=== PATIENT | female | born 1990 | race Caucasian/White ===

== ENCOUNTER 2020-12-22 06:01 | Observation (INO) ==
--- NOTE | 2020-12-16 08:53 | Anesthesiology Consultation ---
Date of Service December 16, 2020 Assessment & Plan (1) Encounter for pre-operative examination: Chart Review Chart Review: Acceptable Risk for Surgery (pending preop Covid testing ) and Patient NOT seen in Pre Admission Testing - Check test AM DOS Per nursing assessment 12/08/2020, patient resides in [facility]. Travels to [facility] for medical appts. Wears PPE. No known Covid positive contacts or Covid related symptoms. No known Covid infection in the past 90 days. Covid test 12/15/20= results pending. History Surgery Operation Date: 12/22/20 07:30 Proposed Procedures p Bilateral Breast Reduction - Huong Paulino MD Height/Weight Height: 5 ft Weight: 75.75 kg Allergies Allergy/AdvReac Type Severity Reaction Status Date / Time No Known Drug Allergies Allergy Verified 12/08/20 15:35 Medications Home Medications Medication Instructions Recorded Confirmed Last Taken cetirizine 10 mg capsule 10 mg PO QAM 08/22/20 12/08/20 Unknown dextroamphetamine-amphetamine 5 mg 20 mg PO UD 08/22/20 12/08/20 Unknown tablet albuterol sulfate 90 mcg/actuation 1 inh INHALATION QID PRN 12/05/20 12/08/20 Unknown aerosol inhaler oxycodone-acetaminophen 5 mg-325 1 tab PO Q4H PRN #18 tab 12/05/20 12/05/20 Unknown mg tablet fluticasone propion-salmeterol 1 inh INHALATION QAM 12/08/20 12/08/20 Unknown [Advair Diskus] Past Medical History Medical History ADHD Asthma uses PRN INH 1xwk on avg Chronic upper back pain History of anxiety History of depression History of kidney stones Past Family History Family History Other Cancer No family history of adverse response to anesthesia Past Surgical History Surgical History Hx of wisdom tooth extraction Social History Smoking Status: Never smoker Do You Dip or Chew Tobacco: No Hx Alcohol Use: Yes Alcohol type: wine and hard liquor alcohol intake frequency: a few times a week Hx Substance Use: No substance use type: marijuana Last Used Substance Other:: 1 week ago Testing Laboratory Results Laboratory Tests 12/15/20 12/15/20 12/15/20 16:37 16:37 16:37 WBC 7.74 Hgb 14.4 Hct 41.8 Plt Count 326 PT 9.7 INR 1.0 APTT 27.7 Sodium 138 Potassium 3.4 L Chloride 107 Carbon Dioxide 26 BUN 12 Creatinine 0.85 Glucose 90
[~2020-12-22 06:01] MED LIST: LR 15ML/HR IV SCH; ceFAZolin 2000MG 2,000 MG/15 ML SYR IV SCH
--- NOTE | 2020-12-22 07:02 | History & Physical Bridge Note ---
Date of Service December 22, 2020 History & Physical Bridge Note I have examined the patient, reviewed the History & Physical and in the interval since the performance of the History & Physical I have noted the following changes of clinical significance: no changes noted
[2020-12-22] MEDS ORDERED: LIDOCAINE/EPINEPHRINE 1% 20 ML VIAL ONE (07:03)
[2020-12-22] MEDS ORDERED: LIDOCAINE HCL 1% 20 ML VIAL ONE (07:03)
[2020-12-22] MEDS ORDERED: EPINEPHrine INJ 1 MG/ML AMP ONE (07:03)
[2020-12-22] MEDS ORDERED: BUPIVACAINE 0.5 % 5 MG/1 ML MPF 30ML VIAL ONE (07:21)
[2020-12-22] MEDS ORDERED: BUPIVACAINE 0.5 % 5 MG/1 ML PF 10ML VIAL ONE (07:21)
[2020-12-22] MEDS ORDERED: BUPIVACAINE LIPOSOME 1.3% 266 MG/20 ML VIAL ONE (07:23)
[2020-12-22] MEDS ORDERED: MIDAZOLAM HCL 1 MG/ML 2ML VIAL ONE (07:24)
[2020-12-22] MEDS ORDERED: LARYING-O-JET KIT (LTA) ONE (07:24)
[2020-12-22] MEDS ORDERED: fentaNYL citrate 100 MCG/2 ML VIAL ONE ×3 (07:24→12:04)
[2020-12-22] MEDS ORDERED: GLYCOPYRROLATE 0.2 MG/ML VIAL ONE (07:24)
[2020-12-22] MEDS ORDERED: LIDOCAINE HCL 2% 2 ML VIAL/AMP(20MG/ML) INFIL ONE (07:24)
[2020-12-22] MEDS ORDERED: DEXAMETHASONE SOD INJ 4 MG/ML VIAL ONE (07:24)
[2020-12-22] MEDS ORDERED: ROCURONIUM BROMIDE 10 MG/ML 5 ML VIAL IV ONE ×2 (07:24→08:39)
[2020-12-22] MEDS ORDERED: ONDANSETRON INJ 2 MG/ML 2 ML VIAL ONE ×2 (07:24→08:51)
[2020-12-22] MEDS ORDERED: ePHEDrine sulfate 50 MG/ML SYR ONE (07:24)
[2020-12-22] MEDS ORDERED: NEOSTIGMINE METHYLSULFATE 5 MG/5 ML SYR ONE (07:24)
[2020-12-22] MEDS ORDERED: PHENYLEPHRINE 100MCG/ML 5ML SYR ONE (07:24)
[2020-12-22] MEDS ORDERED: PROPOFOL IV EMULSION 10 MG/ML 20 ML VIAL IV ONE (07:24)
[2020-12-22] MEDS ORDERED: SCOPOLAMINE 1 MG TDSY TD ONE ×2 (07:29→08:47)
[2020-12-22] MEDS ORDERED: PROMETHAZINE HCL 12.5 MG in SODIUM CHLORIDE 0.9% 50 ML IV PRN ×3 (08:47→17:50)
[2020-12-22] MEDS ORDERED: HYDROmorphone INJ 1 MG/ML SYRINGE IV PRN (08:47)
[2020-12-22] MEDS ORDERED: ONDANSETRON INJ 2 MG/ML 2 ML VIAL IV PRN ×3 (08:47→17:50)
[2020-12-22] MEDS ORDERED: fentaNYL citrate 100 MCG/2 ML VIAL IV PRN (08:47)
[2020-12-22] MEDS ORDERED: ePHEDrine sulfate 50 MG/ML AMP IV PRN (08:47)
[2020-12-22] MEDS ORDERED: ATROPINE SULFATE 0.1 MG/ML 10ML SYR IV PRN (08:47)
--- NOTE | 2020-12-22 12:07 | Post Operative Brief Note ---
PG Immediate Post Op with CF Date of Surgery December 22, 2020 Pre & Post Diagnosis Operation Date: 12/22/20 07:30 Pre-Op Diagnosis: Symptomatic Macromastia Post-Op Diagnosis: Symptomatic Macromastia I identified the patient and participated in the time-out.: Yes Procedure Operation Date: 12/22/20 07:30 Actual Procedures p Bilateral Breast Reduction(Bilateral) - Huong Paulino MD Surgeon Huong Paulino MD Asphalt Distributor Operator Martha Marques PAClaireC Estimated Blood Loss 75 Findings Consistent with Post-Op Diagnosis Specimens Specimen Description: A. Left Breast Tissue B. Right Breast Tissue Drains Ehsan-Ocampo Drain
--- NOTE | 2020-12-22 12:13 | Operative Report ---
PG Post Operative Report Pre & Post Diagnosis Operation Date: 12/22/20 07:30 Pre-Op Diagnosis: Symptomatic Macromastia Post-Op Diagnosis: Symptomatic Macromastia I identified the patient and participated in the time-out.: Yes Procedure Operation Date: 12/22/20 07:30 Actual Procedures p Bilateral Breast Reduction(Bilateral) - Huong Paulino MD Surgeon Huong Paulino MD Project Eng Martha Marques PA-C Estimated Blood Loss 75 Findings Consistent with Post-Op Diagnosis Specimens left breat tissue 1084 grams, right breast tissue 1228 grams Drains JPx2 Anesthesia Type General Complications none Indications bilateral shoulder, back and neck pain secondary to macromastia Description of Procedure The risks, benefits, and alternatives of the procedure were explained to the patient who agreed and signed consent. She was identified and marked in the preoperative holding area. She was brought to the operating room where she was positioned supine and placed under general anesthesia without incident. PECS block performed by anesthesia. Surgical site was prepped and draped sterilely. A time-out procedure was performed. I began with the left side. Markings were reassessed and a 8 cm pedicle was marked. 1% lidocaine with epinephrine was used to anesthetize the planned incisions. A 38 mm cookie cutter was used to circumscribe the nipple-areolar complex. The previously marked 8 cm pedicle was incised using a 15 blade scalpel and deepithelized. I began with the medial dissection of the pedicle using electrocautery. Cautery was used to incise through dermis and breast parenchyma down to the chest wall, taking care not to undermine the pedicle during dissection. A similar procedure was undertaken on the lateral aspect of the pedicle again taking care not to undermine. Lastly, the pedicle was dissected out superiorly using electrocautery and this was carried down to the chest wall as well. I then began with excision of the medial breast tissue followed by lateral aspect of the breast tissue and surrounding keyhole incision. A 15 blade scalpel was used to make the inframammary fold incision and electrocautery was used to deepen the incision through dermis and breast parenchyma. Dissection was then carried superiorly to the level of the superior incision. Superior incision was then incised using a 15 blade scalpel and again dissected using electrocautery. This was undertaken laterally and then around the keyhole portion of the incision. Care was taken to leave some fat on the lateral pectoralis fascia in order to protect the T4 intercostal nerve. Hemostasis was achieved with electrocautery. The specimen was passed off in its entirety for weighing. Additional resection was undertaken from the superior flap in order to facilitate closure of the breast and to provide the best shape. The total resection weight of the left breast was 1084 grams. The wound was irrigated with saline and hemostasis was achieved with electrocautery. A 15 Vietnamese Keven drain was brought out through a separate stab incision. The nipple-areolar complex was brought into the keyhole using 2-0 Vicryl deep dermal suture. The wound was closed firs t in a lateral to mid breast direction and then medial to mid breast direction using 2-0 Vicryl deep dermal sutures. Vertical limb was also approximated using 2-0 Vicryl deep dermals and the nipple-areolar complex was inset using 2-0 Vicryl deep dermal sutures. Next, the superficial dermal layer was closed using 2-0 PDO running Quill suture along the inframammary fold and 3-0 PDS interrupted dermal sutures along the vertical limb and nipple- areolar complex. Lastly 3-0 Monocryl running subcuticular suture was placed. A similar procedure was undertaken on the right side with maximal excision weight of 1228 grams. Breasts were symmetric and nipple-areolar complexes were viable bilaterally following wound closure. Dermabond Prineo was applied along the inframammary fold and vertical limb and Dermabond was placed around the nipple-areolar complex. Dry dressings and a surgical bra were placed. The patient was awakened and transferred to recovery room in satisfactory condition. Martha Marques PA-C was present and scrubbed throughout the procedure and was instrumental in providing retraction during dissection of the pedicle and assisting in wound closure. I attest to the content of the Intraoperative Record and any orders documented therein. Any exceptions are noted below.
[2020-12-22] MEDS ORDERED: diphenhydrAMINE 50 MG/ML VIAL IV PRN (13:06)
[2020-12-22] MEDS ORDERED: MoRPHine SULFATE 4 MG/ML 1 ML CARP\\VIAL IV PRN (13:06)
[2020-12-22] MEDS ORDERED: diphenhydrAMINE Capsule 25 MG CAP PO PRN (13:06)
[2020-12-22] MEDS ORDERED: LORazepam 0.5 MG TAB PO PRN (13:06)
--- NOTE | 2020-12-22 13:10 | XRay Report ---
XR chest 1V portable CLINICAL HISTORY: LOST EARRING BACK TO BE DONE IN OR 6 EVALUATE FOR FOREIGN BODY COMPARISON STUDY: No previous studies for comparison. FINDINGS: A single supine view the abdomen is provided for interpretation. There are bilateral surgic al drains. There is an endotracheal tube 1 cm above the cheri. There is no focal pulmonary consolida tion. No radiopaque foreign bodies are visualized.[ IMPRESSION: No radiopaque foreign bodies identified. ACT 112: Negative or not required by law. Electronically signed by: Jax Noel M.D. 12/22/2020 1:08 PM
[2020-12-22] MEDS ORDERED: ALBUTEROL HFA 8 GM INHALER INH PRN (14:27)
[2020-12-22] MEDS: oxyCODONE/ACETAMINOPHEN 5mg/325mg TAB PO PRN ×2 (15:07→19:24)
--- NOTE | 2020-12-22 15:50 | Surgery Progress Note ---
Date of Service December 22, 2020 Assessment & Plan (1) Macromastia: Admission and Anticipated Discharge Date Admission Date: S/P bilateral breast reduction earlier this morning. Patient has good pain control. Nipples appear viable and drains with appropriate output. We reviewed post-op instructions with patient and her father. Anticipate drain removal and d/c home tomorrow. Supervising Physician Co-Signing Physician Notes I personally saw and examined this patient and agree with the assessment and plan. Discussed with patient intraop X ray looking for foreign body and that x ray is clear. Subjective Patient resting comfortably. She is accompanied by her father. VSS. Pain controlled with one Percocet. Physical Exam Constitutional: WD/WN, vitals as above Skin: + incision (CDI, appropiate ecchymosis, nipples sensate with good color) drains with small amount of serosang output Results & Data ([facility]) Vital Signs (Past 12 Hours) Vital Signs Temp Pulse Pulse Resp BP BP Pulse Ox 12/22/20 15:10 72 16 100/66 98 12/22/20 14:49 79 16 112/73 98 12/22/20 13:50 36.7 C 68 14 110/79 97 12/22/20 13:40 66 15 104/75 95 12/22/20 13:30 64 15 109/78 100 12/22/20 13:20 60 15 107/76 100 12/22/20 13:10 87 24 105/76 96 12/22/20 13:04 36.7 C 88 14 119/93 96 12/22/20 06:24 37.1 C 102 H 20 129/84 100 PG Care Time/CCT Total # of Minutes Spent Total Time Spent with Patient: Total time spent is greater than 50% in coordination of care (as documented) at patient's floor/unit and/or counseling patient: Coding Level of Care Code None Diagnoses Macromastia N62
--- NOTE | 2020-12-22 16:28 | Anesthesiology Progress Note ---
Date of Service December 22, 2020 Anesthesia Post Procedure Vital Signs Vital Signs: Temp Pulse Pulse Resp BP BP Pulse Ox 12/22/20 16:25 82 16 106/68 99 12/22/20 15:10 72 16 100/66 98 12/22/20 14:49 79 16 112/73 98 12/22/20 14:10 36.7 C 78 16 118/79 100 12/22/20 13:50 36.7 C 68 14 110/79 97 12/22/20 13:40 66 15 104/75 95 12/22/20 13:30 64 15 109/78 100 12/22/20 13:20 60 15 107/76 100 12/22/20 13:10 87 24 105/76 96 12/22/20 13:04 36.7 C 88 14 119/93 96 12/22/20 06:24 37.1 C 102 H 20 129/84 100 Pain Intensity Bilateral Breast: Pain Intensity: 4 Transfer of Care Handoff Completed per policy Notes Mental Status: alert / awake / arousable and participated in evaluation Patient Amnestic to Procedure: Yes Nausea / Vomiting: adequately controlled Pain: adequately controlled Airway Patency, RR, SpO2: stable & adequate BP & HR: stable & adequate Hydration State: stable & adequate Anesthetic Complications: no major complications apparent and Pt Satisfied with anesthetic care
[2020-12-22] MEDS: ceFAZolin 2000MG 2,000 MG/15 ML SYR IV SCH ×2 (17:15→23:04)
[2020-12-22] MEDS: D5W AND 1/2NSS + 20MEQ KCL 20 MEQ/1,000 ML BAG IV SCH (17:15)
[2020-12-22] MEDS: MoRPHine SULFATE 2 MG/ML CARP IV PRN (23:03)
[2020-12-23] MEDS: oxyCODONE/ACETAMINOPHEN 5mg/325mg TAB PO PRN ×3 (02:05→13:31)
[2020-12-23] MEDS: D5W AND 1/2NSS + 20MEQ KCL 20 MEQ/1,000 ML BAG IV SCH (05:54)
[2020-12-23] MEDS: MoRPHine SULFATE 2 MG/ML CARP IV PRN (07:29)
[2020-12-23] MEDS ORDERED: FLUTICASONE/VILANTEROL 200/25MCG 14 PUFFS/INHALER INH SCH (09:00)
[2020-12-23] MEDS ORDERED: AMPHETAMINE ASP/SULF/DEXTRAMPH 20 MG TAB PO SCH (09:00)
[2020-12-23] MEDS ORDERED: MULTIVITAMIN TAB PO SCH (09:00)
[2020-12-23] MEDS ORDERED: CETIRIZINE HCL 10 MG TABLET PO SCH (09:00)
--- NOTE | 2020-12-23 09:31 | Surgery Progress Note ---
Date of Service December 23, 2020 Assessment & Plan (1) Macromastia: Admission and Anticipated Discharge Date Admission Date: S/P Bilateral Breast Reduction, POD#1 1. bilateral drains removed 2. We discussed plan to go home today. Patient expresses desire to go home. I advised to eat a full breakfast, d/c IV fluids and see how her pain is managed with Percocet. I asked the nurse to call the office if patient is experiencing nausea, so that I can send her a prescription of Zofran to use at home. Post-op instructions were again reviewed with the patient. All questions answered. Subjective Patient is resting in bed,. She voices discomfort and pain that is not well controlled. She is tolerating a regular diet, but she has not had much to eat. Vitals are stable. Physical Exam Skin: + incision (CDI, appropiate ecchymosis, nipples sensate with good color) drains with small amount of serosang output- both removed. Results & Data ([facility]) Vital Signs (Past 12 Hours) Vital Signs Temp Pulse Pulse Resp BP Pulse Ox 12/23/20 07:19 36.9 C 80 16 104/70 97 12/23/20 03:07 36.9 C 75 20 105/68 98 12/23/20 00:46 20 12/22/20 22:32 37.2 C 77 15 110/71 96 PG Care Time/CCT Total # of Minutes Spent Total Time Spent with Patient: Total time spent is greater than 50% in coordination of care (as documented) at patient's floor/unit and/or counseling patient: Coding Level of Care Code None Diagnoses Macromastia N62
--- NOTE | 2020-12-23 14:52 | Discharge Summary ---
Date of Service December 23, 2020 Admission HPI Per Admitting Provider See admission H&P Admission Exam Per Admitting Provider See admission H&P Principal Diagnosis symptomatic macromastia Discharge Exam Constitutional WD/WN, vitals as above Skin + incision (CDI, appropiate ecchymosis, nipples sensate with good color) Discharge Data Allergies Allergy/AdvReac Type Severity Reaction Status Date / Time No Known Drug Allergies Allergy Verified 12/22/20 06:28 Procedures Performed Operation Date: 12/22/20 07:30 Actual Procedures p Bilateral Breast Reduction(Bilateral) - Huong Paulino MD Ordered Studies 12/22/20 05:00 US - OR guided needle placemen Routine Hospital Course (1) Macromastia: Patient presented to [facility] with history of symptomatic macromastia. She was taken to the OR and underwent bilateral breast reduction. There were no intraoperative complications. She was taken to recovery and transferred to med/surg for observation. On POD#1, she was feeling well. She was tolerating a regular diet and ambulating. On exam, her vitals were stable. Her incisions were CDI and nipples viable. Her drains were removed. She was discharged home with instructions to follow-up in the office in one day. Total Time Total Time Spent Total Time Spent (In Minutes): 20 Total Time Includes: Examination of the Patient, Discharge Planning, Medication Reconciliation and Communication With Other Providers Discharge Plan Discharge Items Patient Disposition: Home - Self-Care Reason For Visit: Symoptomatic Macromastia Discharge Diagnosis: s/p bilateral breast reduction Activity: As commented below Non-emergency contact: Surgeon Call non-emergency contact if: your pain is not controlled, you have a fever and your wound has increased redness Follow-up/Referrals: PCP,NO [Primary Care Provider] - Diet: Regular Addtl Attending Provider Instructions: ACTIVITY RECOMMENDATIONS: __Normal activities _x_No bending, lifting or straining. Keep you arms at/below shoulder height as much as possible __No driving _x_Driving allowed when you are off pain medications and you feel safe to drive _x_Walking permitted __You should have help at home for ___ days DRESSINGS: __No dressings required _x_Keep dressings dry/in place until first office visit __Remove dressings ___ and leave dressings off __Apply ice ___ days __Remove dressings and reapply garment __Apply antibiotic ointment (Bacitracin, Neosporin, etc) to wounds 3-4 times/day for 10 days BATHING: _x_Keep dressings dry _x_Sponge bathing permitted away from surgical dressings __Showering permitted _x_No swimming, hot tubs or soaking in a tub MEDICATIONS: Resume previous medications unless instructed otherwise by your surgeon. _x_Do not use aspirin, Motrin, Advil or Ibuprofen as these may promote bleeding. Please use Tylenol. _x_Prescription(s) provided: pain medication was prescribed at your last office visit OTHER INSTRUCTIONS: __Record drain output 2-3 times per day SPECIAL CARE INSTRUCTIONS: * It is normal to have a mild fever after surgery. If your temperature is higher than 101.5 degrees F, please call the office at [phone]. * Constipation is a typical side effect of pain medication. An [id number] stool softener will help relieve this. * Leaking around surgical drains may occur and should not cause concern. Sometimes these drains become clogged. If this happens, remove the bulb and milk the clot out of the tube, then replace the bulb. * Drainage from wounds after liposuction is normal and should be expected. Garments will become soiled. You should protect furniture and bedding. This drainage should mostly subside within 2-3 days. Leave garments in place unless instructed to remove them. * If you have unusual drainage from a wound or are concerned you have an infection or have any questions or concerns, please call the office at [phone]. FOLLOW UP VISIT: If not already scheduled, please call the office, , when you return home after surgery to schedule an appointment to be seen in _1__ days. Pending Studies at Discharge: Yes Studies:: pathology Stand-Alone Forms: [facility], Opioid Pain Management, Smoking Cessation Medications and DC Order Prescriptions: Continued Zyrtec 10 mg capsule 10 mg PO QAM RF: 0 dextroamphetamine-amphetamine [Adderall] 5 mg tablet 20 mg PO UD RF: 0 albuterol sulfate [ProAir HFA] 90 mcg/actuation HFA aerosol inhaler 1 inh inhalation QID PRN (Reason: sob) RF: 0 oxycodone-acetaminophen [Endocet] 5-325 mg tablet 1 tab PO Q4H PRN (Reason: pain) Qty: 18 RF: 0 fluticasone propion-salmeterol [Advair Diskus] 250-50 mcg/dose Blister With Device 1 inh INHALATION QAM RF: 0 Discharge Orders: Discharge Order (Routine); Ordered 12/23/20 Ordered By: Sarah Saxena/Other Patient Handouts: Acetaminophen Oxycodone tablets Admission Data Admit Date/Time: 12/22/20 13:08 Attending Provider: Huong Paulino Admit Provider: Huong Paulino Primary Care Provider: PCP,NO Other Interventions: Discharge Summary Assessment (RN) Last Done: 12/23/20 10:54 Coding Level of Care Code 13678 OBS Care - Discharge Diagnoses Macromastia N62
== END 2020-12-23 14:27 | disposition home or self-care (01) ==
LOC: 3W 06:01 → ASU 06:01